=== PATIENT | male | born 1985 | race Two or more races ===

== ENCOUNTER → 2017-01-01 | Outpatient (CLI) | payer MEDICAID | LOC: FIMAGING 10:23 | PROVIDERS: ATTEND Internal Medicine | DX: K76.0 Fatty (change of) liver, not elsewhere classified (principal); B18.2 Chronic viral hepatitis C ==

== ENCOUNTER → 2017-10-23 | Outpatient (CLI) | payer MEDICAID | LOC: FIMAGING 11:47 | PROVIDERS: ATTEND Physician Assistant | DX: K76.0 Fatty (change of) liver, not elsewhere classified (principal) ==